=== PATIENT | female | born 1995 ===

== ENCOUNTER 2022-01-02 09:58 | Inpatient (IN) | payer BC ==
[~2022-01-02] VITALS: Ht 162.7 cm; Wt 80.5 kg
[2022-01-03] VITALS (18 sets, daily range): BP systolic 96–120; BP diastolic 43–73; PULSE 59–86; TEMP 97.7–98.9
--- NOTE | 2022-01-03 10:00 | NUR ---
PT ARRIVES TO UNIT FOR SCHEDULED REPEAT C/S FOR IUGR AND MULTILOBED PLACENTA. PT STATES THAT FETUS HAS BEEN ACTIVE, DENIES ANY SROM OR UC'S. FOB ACCOMPANIES PT TO ROOM AND GIVEN OR GARB. PT GIVEN CLEAN GOWN AND INSTRUCTIONS FOR PREOP ADMISSION. PT VOIDED WITHOUT DIFFICULTY AND RETURNED TO BED. MONITOR APPLIED. IV STARTED ON 2ND ATTEMPT IN RIGHT FOREARM. ALL CONSENT FORMS SIGNED AND WITNESSED. ASSESSMENT DONE AND ADMISSION INFORMATION COMPLETED. ALL QUESTIONS ANSWERED. PT AND ARE BOTH VERY EXCITED AND HAPPY THAT THIS /C/S IS LESS HECTIC THAN PREVIOUS DELIVERY.
[2022-01-03 11:04] LABS: BASO # 0.1 K/mm3 (0.0-0.2); BASO % 0.4 % (0.0-2.0); EOS # 0.3 K/mm3 (0.0-0.7); EOS % 2.6 % (0.0-4.0); GRAN # 9.7 K/mm3 (1.4-6.5); GRAN % 74.2 % (42.2-75.2); HEMOGLOBIN 11.1 g/dl (12.5-16.0); LYMPH # 2.1 K/mm3 (1.2-3.4); MEAN CELL VOLUME 86 fl (80.0-100.0); MEAN CORPUSCULAR HEMOGLOBIN 29 pg (27-31); MEAN CORPUSCULAR HGB CONC 34 g/dl (33.0-37.0); MONO # 0.8 K/mm3 (0.1-0.6); MONO % 6.3 % (1.7-9.3); PLATELET COUNT 231 K/mm3 (130-400); RED BLOOD COUNT 3.77 M/mm3 (4.10-5.30); REDCELL DISTRIBUTION WIDTH-CV 13.2 % (11.5-14.5)
[2022-01-03 11:07] LABS: HEMATOCRIT 32.5 % (37.0-47.0)
[2022-01-03] MEDS ORDERED: PRENATAL TABLET PO (11:22)
[2022-01-04 06:50] VITALS: BP 123/79; PULSE 78; TEMP 98.3
[2022-01-04 07:15] VITALS: BP 110/71; PULSE 75; TEMP 97.9
[2022-01-04 16:00] VITALS: BP 110/51; PULSE 76; TEMP 98.3
--- NOTE | 2022-01-04 18:33 | NUR ---
REPORT RECEIVED. PLAN OF CARE REVIEWED. PATIENT RESTING IN BED.
[2022-01-04 19:25] VITALS: BP 116/73; PULSE 74; TEMP 98.3
--- NOTE | 2022-01-05 04:09 | NUR ---
Patient care, medication administration and nursing documentation occurred during a Daylight Savings Time Change.
[2022-01-05] MEDS ORDERED: ROXICODONE 55 MG/TAB PO (09:10)
[2022-01-05] MEDS ORDERED: IBU600 MG PO (09:10)
[2022-01-05 09:30] VITALS: BP 126/72; PULSE 92; TEMP 98.6
== END 2022-01-05 11:30 | disposition home or self-care (01) | DRG 788 ==
LOC: OB 01-03 09:55 → LDR 01-03 09:58 → OB 01-03 11:13
PROVIDERS: ADMIT Obstetrics & Gynecology
PROC: 10D00Z1 Extraction of Products of Conception, Low, Open Approach (ICD-10-PCS; principal; 2022-01-03)
DX: O34.211 Maternal care for low transverse scar from previous cesarean delivery (principal); O36.5930 Maternal care for other known or suspected poor fetal growth, third trimester, not applicable or unspecified; O24.429 Gestational diabetes mellitus in childbirth, unspecified control; O69.81X0 Labor and delivery complicated by cord around neck, without compression, not applicable or unspecified; Z3A.37 37 weeks gestation of pregnancy; Z37.0 Single live birth
CPT/HCPCS: J0690; J1885; J2175; J2370; J2405; J2590; J7120